=== PATIENT | female | born 1935 | race Caucasian/White ===

== ENCOUNTER 2020-10-17 16:28 | Emergency (ER) | payer MEDICARE ==
[2020-10-17] MEDS ORDERED: Meclizine 25 MG Tab PO STA (16:52)
--- NOTE | 2020-10-17 17:14 | EDM.PDOC ---
ED HPI GENERAL MEDICAL PROBLEM - General Stated Complaint: DIZZINESS Time Seen by Provider: 10/17/20 16:30 Source of Information: Reports: Patient, Family History Limitations: Reports: No Limitations - History of Present Illness INITIAL COMMENTS - FREE TEXT/NARRATIVE: Patient presented to the ED from PT because of a dizzy spell. She has a history of chronic vertigo and and it's her first day of PT but felt dizzy during the procedure. - Related Data Allergies Allergy/AdvReac Type Severity Reaction Status Date / Time levofloxacin [From Levaquin] Allergy Nausea Verified 12/12/15 10:10 Sulfa (Sulfonamide Allergy Rash Verified 12/12/15 10:10 Antibiotics) Home Meds: Home Meds Gabapentin 100 mg PO BID 03/19/13 [History] Pravastatin Sodium [Pravastatin (Pravachol)] 40 mg PO DAILY 03/19/13 [History] Sertraline HCl 50 mg PO DAILY 03/19/13 [History] Cyanocobalamin (Vitamin B-12) [Vitamin B-12] 500 mcg PO DAILY 05/13/13 [History] Clopidogrel Bisulfate [Clopidogrel] 75 mg PO DAILY 10/16/14 [History] Acetaminophen 325 mg PO Q4H PRN 04/25/15 [History] Ergocalciferol (Vitamin D2) [Drisdol] 50,000 unit PO Q30D 04/25/15 [History] Fluticasone Propionate [Flonase] 2 spray NASBOTH DAILY PRN 04/25/15 [History] Loratadine 10 mg PO DAILY PRN 04/25/15 [History] Propylene Glycol/Peg 400 [Systane 0.3-0.4% Eye Drops] 1 drop EYEBOTH BID 04/25/15 [History] Triamcinolone Acetonide [Triamcinolone Acetonide 0.1% Crm] 1 applic TOP TID PRN 04/25/15 [History] Vit C/Vit E AC/Lut/Copper/Zinc [Preservision Lutein Softgel] 1 cap PO BEDTIME 04/25/15 [History] amLODIPine [Norvasc] 5 mg PO DAILY 04/25/15 [History] Amiodarone HCl 400 mg PO BID 11/28/15 [History] Cyclobenzaprine [Flexeril] 5 mg PO BEDTIME 11/28/15 [History] Levothyroxine [Synthroid] 50 mcg PO ACBREAKFAST 11/28/15 [History] Past Medical History HEENT History: Reports: Cataract Cardiovascular History: Reports: Afib, Aneurysm Respiratory History: Reports: None Other Gastrointestinal History: Gall bladder lazer Other Genitourinary History: bladder wall growth removed Other LEAD PASTOR History: leap Musculoskeletal History: Reports: None Other Neuro History: brain aneurysyn Psychiatric History: Reports: None Endocrine/Metabolic History: Reports: None Hematologic History: Reports: Iron Deficiency Oncologic (Cancer) History: Reports: None - Infectious Disease History Infectious Disease History: Reports: Influenza, Measles - Past Surgical History HEENT Surgical History: Reports: Cataract Surgery, Tonsillectomy Social & Family History - Living Situation & Occupation Living situation: Reports: ED ROS GENERAL - Review of Systems Review Of Systems: See Below Constitutional: Reports: No Symptoms HEENT: Reports: No Symptoms Respiratory: Reports: No Symptoms Cardiovascular: Reports: No Symptoms Endocrine: Reports: No Symptoms GI/Abdominal: Reports: No Symptoms : Reports: No Symptoms Musculoskeletal: Reports: No Symptoms Skin: Reports: No Symptoms Neurological: Reports: Dizziness Psychiatric: Reports: No Symptoms ED EXAM, NEURO - Physical Exam Exam: See Below Exam Limited By: No Limitations General Appearance: Alert, No Apparent Distress Ears: Normal External Exam, Normal Canal Nose: Normal Inspection, Normal Mucosa, No Blood Throat/Mouth: Normal Inspection, Normal Lips Head Exam: Atraumatic, Normocephalic Neck: Normal Inspection, Supple, Non-Tender, Full Range of Motion Respiratory/Chest: No Respiratory Distress, Lungs Clear, Normal Breath Sounds Cardiovascular: Normal Peripheral Pulses, Regular Rate, Rhythm, No Edema GI/Abdominal: Normal Bowel Sounds, Soft, Non-Tender, No Organomegaly Neurological: Alert, Normal Mood/Affect, Normal Dorsiflexion, CN II-XII Intact, Normal Plantar Flexion, Normal Gait, Normal Reflexes #1 Interpretation EKG Date: 10/17/20 Time: 16:58 Rhythm: NSR Rate (Beats/Min): 69 [place]: Normal P-Wave: Present QRS: Normal ST-T: Normal QT: Prolonged EKG Interpretation Comments: NSR Prolonged QT Course - Vital Signs Text/Narrative:: Lab/EKG result was reviewed and discussed with patient and her daughter Meclizine 25 mg PO x1 Last Recorded V/S: Last Vital Signs Temp 36.6 C 04/21/21 16:28 Pulse 88 10/17/20 16:28 Resp 18 10/17/20 16:28 BP Pulse Ox 98 10/17/20 16:28 - Orders/Labs/Meds Labs: Laboratory Tests 10/17/20 10/17/20 Range/Units 17:10 17:10 WBC 7.6 (3.0-10.3) x10-3/uL RBC 4.11 (3.60-5.20) x10(6)uL Hgb 13.8 (11.4-15.5) g/dL Hct 41.3 (34.2-48.2) % MCV 100.3 (76.7-100.5) fL MCH 33.5 (23.9-33.9) pg MCHC 33.4 (31.9-34.8) g/dL RDW 13.1 (12.3-16.5) % Plt Count 206 (151-488) x10(3)uL MPV 8.6 (7.1-12.4) fL Neut % (Auto) 79.4 H (30.8-76.2) % Lymph % (Auto) 12.4 L (18.4-52.1) % Callahan % (Auto) 6.9 (4.4-15.7) % Eos % (Auto) 0.9 (0.6-8.1) % Baso % (Auto) 0.4 (0.2-1.5) % Neut # (Auto) 6.0 (1.5-6.3) x10-3/uL Lymph # (Auto) 0.9 L (1.0-4.4) x10-3/uL Callahan # (Auto) 0.5 (0.3-1.0) x10-3/uL Eos # (Auto) 0.1 (0.0-0.8) x10-3/uL Baso # (Auto) 0.0 (0.0-0.1) x10-3/uL Sodium 142 (135-145) mmol/L Potassium 3.8 (3.5-5.3) mmol/L Chloride 104 (100-110) mmol/L Carbon Dioxide 29 (21-32) mmol/L BUN 14 (7-18) mg/dL Creatinine 0.9 (0.55-1.02) mg/dL Est Cr Clr Drug Dosing TNP Estimated GFR (MDRD) 60 (>60) BUN/Creatinine Ratio 15.6 (9-20) Glucose 130 H (80-116) mg/dL Calcium 9.1 (8.6-10.2) mg/dL Meds: Medications Discontinued Medications Generic Name Dose Route Start Last Admin Trade Name Freq PRN Reason Stop Dose Admin Meclizine HCl 25 mg 10/17/20 16:52 10/17/20 17:29 Meclizine 25 Mg Tab PO 10/17/20 16:53 25 mg NOW STA Administration Departure - Departure Time of Disposition: 18:20 Disposition: Home, Self-Care 01 Condition: Good Clinical Impression: Chronic vertigo - Discharge Information Instructions: Dizziness, [id number] Referrals: Donna Ramos NP [Primary Care Provider] - Forms: ED Department Discharge Additional Instructions: Please read discharge instructions on chronic vertigo Take your meclizine 25 mg every 6 hours as needed for vertigo even if it only last for seconds to prevent it from coming back Follow up as needed Sepsis Event Note (ED) - Focused Exam Vital Signs: Vital Signs Temp Pulse Resp Pulse Ox 10/17/20 16:28 36.6 C 88 18 98
[2020-10-17 17:48] VITALS: PULSE 88
== END 2020-10-17 18:30 | disposition home or self-care (01) ==
LOC: FB.ED 16:28
DX: R42 Dizziness and giddiness (principal); Z88.1 Allergy status to other antibiotic agents; Z88.2 Allergy status to sulfonamides; Z79.02 Long term (current) use of antithrombotics/antiplatelets; Z79.899 Other long term (current) drug therapy
CPT/HCPCS: 36415; 80048; 85025; 99284; A9270

== ENCOUNTER 2024-02-18 14:54 | Emergency (ER) | payer MEDICARE ==
[2024-02-18 15:47] LABS: BLOOD UREA NITROGEN,BUN 17 mg/dL (7-18); BUN/CREATININE RATIO 14.2 (9-20); CALCIUM 8.5 mg/dL (8.6-10.2); CARBON DIOXIDE,CO2 28 mmol/L (21-32); CHLORIDE,CL 103 mmol/L (100-110); CREATININE 1.2 mg/dL (0.55-1.02); ESTIMATED GFR 44 mL/min (>60); GLUCOSE RANDOM 69 mg/dL (80-116); POTASSIUM,K 4.2 mmol/L (3.5-5.3); SODIUM,NA 140 mmol/L (135-145)
[2024-02-18 15:52] LABS: A/G RATIO 1.1; ALANINE AMINOTRANSFERASE,ALT 20 U/L (12-36); ALBUMIN 3.6 g/dL (3.2-4.6); ALKALINE PHOSPHATASE 60 IU/L (56-112); ASPARTATE AMNIOTRANSFERASE,AST 20 IU/L (5-25); BILIRUBIN TOTAL 0.4 mg/dL (0.1-1.3); MAGNESIUM 1.8 mg/dL (1.8-2.5); PROTEIN TOTAL,TP 6.9 g/dL (6.0-8.0)
[2024-02-18 16:06] LABS: C-REACTIVE PROTEIN < 0.50 mg/dL (<0.50)
[2024-02-18 16:48] VITALS: BP 149/65; PULSE 52
== END 2024-02-18 17:21 | disposition home or self-care (01) ==
LOC: FB.ED 14:54
DX: R10.9 Unspecified abdominal pain (principal); Z88.1 Allergy status to other antibiotic agents; Z88.2 Allergy status to sulfonamides; Z79.890 Hormone replacement therapy; Z79.899 Other long term (current) drug therapy; Z90.49 Acquired absence of other specified parts of digestive tract
CPT/HCPCS: 36415; 74176; 80053; 82947; 83605; 83735; 84484; 86140; 87086; 93005; 99284

== ENCOUNTER 2024-12-09 10:58 | Emergency (ER) | payer MEDICARE ==
[2024-12-09] MEDS ORDERED: Sodium Chloride 0.9% 10 ML Syringe FLUSH PRN (11:07)
[2024-12-09 11:14] LABS: BASOPHILS PERCENT AUTO 0.9 % (0.2-1.5); EOSINOPHILS ABSOLUTE AUTO 0.2 x10-3/uL (0.0-0.8); EOSINOPHILS PERCENT AUTO 6.1 % (0.6-8.1); HEMOGLOBIN 14.7 g/dL (11.4-15.5); LYMPHOCYTES ABSOLUTE AUTO 1.3 x10-3/uL (1.0-4.4); LYMPHOCYTES PERCENT AUTO 36.8 % (18.4-52.1); MEAN CORPUSCULAR HEMOGLOBIN 33.2 pg (23.9-33.9); MEAN CORPUSCULAR HGB CONC 33.5 g/dL (31.9-34.8); MEAN CORPUSCULAR VOLUME 99.3 fL (76.7-100.5); MEAN PLATELET VOLUME 8.5 fL (7.1-12.4); MONOCYTES ABSOLUTE AUTO 0.5 x10-3/uL (0.3-1.0); NEUTROPHILS ABSOLUTE AUTO 1.5 x10-3/uL (1.5-6.3); NEUTROPHILS PERCENT AUTO 43.2 % (30.8-76.2); PLATELET COUNT,PLT 237 x10(3)uL (151-488); RED BLOOD CELL COUNT 4.43 x10(6)uL (3.60-5.20); WHITE BLOOD CELL COUNT,WBC 3.5 x10-3/uL (3.0-10.3)
[2024-12-09 11:21] LABS: BLOOD UREA NITROGEN,BUN 15 mg/dL (7-18); BUN/CREATININE RATIO 13.6 (9-20); CALCIUM 9.9 mg/dL (8.6-10.2); CARBON DIOXIDE,CO2 28 mmol/L (21-32); CHLORIDE,CL 102 mmol/L (100-110); CREATININE 1.1 mg/dL (0.55-1.02); ESTIMATED GFR 48 mL/min (>60); GLUCOSE RANDOM 104 mg/dL (80-116); POTASSIUM,K 4.5 mmol/L (3.5-5.3); SODIUM,NA 140 mmol/L (135-145)
[2024-12-09 11:24] VITALS: BP 126/57; PULSE 58
[2024-12-09 11:28] LABS: A/G RATIO 1.1; ALANINE AMINOTRANSFERASE,ALT 22 U/L (12-36); ALBUMIN 3.9 g/dL (2.9-4.5); ALKALINE PHOSPHATASE 76 IU/L (56-112); ASPARTATE AMNIOTRANSFERASE,AST 21 IU/L (5-25); BILIRUBIN TOTAL 0.7 mg/dL (0.1-1.3); MAGNESIUM 1.8 mg/dL (1.8-2.5); PROTEIN TOTAL,TP 7.6 g/dL (6.0-8.0)
[2024-12-09] MEDS: Iopamidol 755 Mg/ML 100 ML Bottle IV SCH (12:10)
[2024-12-09 12:43] LABS: BILIRUBIN,URINE NEGATIVE (NEGATIVE); GLUCOSE,URINE NORMAL (NORMAL); KETONES,URINE NEGATIVE (NEGATIVE); LEUKOCYTE ESTERASE,URINE NEGATIVE (NEGATIVE); NITRITE,URINE NEGATIVE (NEGATIVE); OCCULT BLOOD,URINE NEGATIVE (NEGATIVE); PROTEIN,URINE NEGATIVE (NEGATIVE); UROBILINOGEN,URINE NORMAL (NEGATIVE)
[2024-12-09 12:44] LABS: APPEARANCE,URINE CLEAR (CLEAR); COLOR,URINE YELLOW (YELLOW)
[2024-12-09] MEDS: Sodium Chloride 0.9% 1,000 ML IV SCH (15:22)
== END 2024-12-09 16:45 ==
LOC: FB.ED 10:58
DX: G45.9 Transient cerebral ischemic attack, unspecified (principal); H53.2 Diplopia; I48.91 Unspecified atrial fibrillation; Z88.2 Allergy status to sulfonamides; Z88.1 Allergy status to other antibiotic agents; Z79.899 Other long term (current) drug therapy; Z90.49 Acquired absence of other specified parts of digestive tract
CPT/HCPCS: 36415; 70496; 70498; 80053; 81003; 83735; 84484; 85025; 93005; 96360; 99285-25; J7030; Q9967